=== PATIENT | female | born 1950 | race Caucasian/White ===

== ENCOUNTER 2018-05-10 19:05 | Observation (INO) | payer MEDICARE ==
[2018-05-10 19:25] LABS: #Basophils 0.2 thou/uL (0.0-0.2); #Eosinphils 0.2 thou/uL (0.0-0.7); #Lymphocytes 3.7 thou/uL (1.20-3.40); #Monocytes 0.6 thou/uL (0.11-0.59); #Neutrophils 6.3 thou/uL (1.40-6.50); %Basophils 1.4 % (0.0-1.0); %Eosinophils 1.7 % (0.0-10.0); %Lymphocytes 34.1 % (21.0-51.0); %Monocytes 5.5 % (0.0-10.0); %Neutrophils 57.2 % (42.0-75.0); Mean Corpuscular Hemoglobin 31.1 pg (27.0-31.0); Mean Corpuscular Volume 86.3 fL (78.0-98.0); Mean Platelet Volume 9.2 fL (7.4-10.4); Platelet Count 249 thou/uL (130-400); RBC Distribution Width 12.3 % (11.5-14.5); Red Blood Cell (RBC) Count 4.81 mill/uL (4.20-5.40); White Blood Cell (WBC) Count 10.9 thou/uL (4.8-10.8)
[2018-05-10] MEDS ORDERED: Nitroglycerin 2% Ointment 1 INCH/1 GM Packet ONE (19:36)
[2018-05-10 19:45] LABS: ALT (SGPT) 15 U/L (8-55); AST (SGOT) 18 U/L (5-34); Albumin 4.6 g/dL (3.4-4.8); Alkaline Phosphatase 102 U/L (40-150); Anion Gap 14 mmol/L (10-20); BUN (Urea Nitrogen) 12 mg/dL (9.8-20.1); Bilirubin, Total 0.4 mg/dL (0.2-1.2); CK (CPK) 53 U/L (29-168); Calc. Creatinine Clearance 0 mL/min (70-130); Calcium 10.1 mg/dL (7.8-10.44); Carbon Dioxide 27 mmol/L (23-31); Chloride 100 mmol/L (98-107); Estimated GFR-MDRD 67; Globulin 3.6 g/dL (2.4-3.5); Glucose 94 mg/dL (80-115); Magnesium 1.9 mg/dL (1.6-2.6); Potassium 3.2 mmol/L (3.5-5.1); Protein, Total 8.2 g/dL (6.0-8.3); Sodium 138 mmol/L (136-145)
[2018-05-10 19:49] LABS: CKMB 1.2 ng/mL (0-6.6); Troponin I Less than 0.010 ng/mL (< 0.028)
--- NOTE | 2018-05-10 20:21 | RAD ---
UPRIGHT PORTABLE CHEST ONE VIEW: History: 67-year-old female with history of chest pain, lightheadedness. Comparison: 02-13-16 FINDINGS: Monitor leads overlie the chest. Heart size is within upper range of normal. No confluent pneumonia, overt edema, pleural effusion or other acute process. IMPRESSION: No acute intrathoracic disease. POS: [facility]
[2018-05-10 20:34] LABS: Bilirubin Negative (Negative); Blood, Urine Negative (Negative); Clarity CLEAR (Clear); Glucose, Urine (Dipstick) Negative (Negative); Leukocyte Trace (Negative); Nitrite Negative (Negative); Protein, Urine (Dipstick) Negative (Neg-Trace); Specific Gravity, Urine 1.016 (1.002-1.036); pH, Urine 6.5 (5.0-9.0)
[2018-05-10 20:36] LABS: Bacteria/HPF None Seen HPF (None Seen); Hyaline Casts/LPF 0-3 HYALINE CAST LPF (0-3 Hyaline); Pathc Cast-AUWi Flag 0.29 (0-2.49); RBC/HPF 0-3 HPF (0-3); Squamous Epithelial 0-3 HPF (0-3)
[2018-05-10] MEDS ORDERED: Loratadine 10 MG TAB PO PRN (21:18)
[2018-05-10] MEDS ORDERED: Benzonatate 100 MG CAP PO PRN (21:18)
[2018-05-10] MEDS ORDERED: HYDROcodone/Acetaminophen 5/325 mg Tablet PO PRN (21:18)
[2018-05-10] MEDS ORDERED: hydrALAZINE 20 MG/ML VIAL SLOW IVP PRN (21:18)
[2018-05-10] MEDS ORDERED: Bisacodyl 5 MG TAB PO PRN (21:18)
[2018-05-10] MEDS ORDERED: Calcium Carbonate 500 MG ChewTAB PO PRN (21:18)
[2018-05-10] MEDS ORDERED: Nitroglycerin 0.4 MG TAB (25 Tab Bottle) SL PRN (21:18)
[2018-05-10] MEDS ORDERED: Sodium Chloride 0.65% Nasal 44 ML BOT EA NARE PRN (21:18)
[2018-05-10] MEDS ORDERED: Senokot S 8.6-50 MG TAB PO PRN ×2 (21:18)
[2018-05-10] MEDS ORDERED: Acetaminophen 325 MG TAB PO PRN (21:18)
[2018-05-10] MEDS ORDERED: Nitroglycerin 0.4 MG TAB (25 Tab Bottle) PO PRN (21:18)
[2018-05-10] MEDS ORDERED: Ondansetron PF 4 MG/2 ML Vial IVP PRN (21:18)
[2018-05-10] MEDS ORDERED: cloNIDine 0.1 MG TAB PO PRN (21:18)
[2018-05-10 21:30] VITALS: BMI 33.3
[2018-05-10] MEDS: Nitroglycerin 2% Ointment 1 INCH/1 GM Packet TOP SCH (21:59)
[2018-05-10] MEDS ORDERED: ALPRAZolam 0.25 MG TAB PO PRN (22:19)
[2018-05-10] MEDS ORDERED: Amlodipine 10 MG TAB PO SCH (22:30)
[2018-05-10 22:42] LABS: Troponin I Less than 0.010 ng/mL (< 0.028)
--- NOTE | 2018-05-10 23:16 | HP ---
PRIMARY CARE PHYSICIAN: Casandra Hampton M.D. CHIEF COMPLAINT: Chest pain, palpitations. HISTORY OF PRESENTING ILLNESS: Ms. Heaton is a 67-year-old female with past medical history of hyper tension and dyslipidemia who presented to the emergency room with above-mentioned complaint. History is mainly obtained by the patient herself and electronic medical records have been reviewed. Ms. Heaton reports that she has recently been under a lot of stress and feeling more anxious. She coe d some tingling of her left hand yesterday and presented to her primary care physician's office as sh e thought that she might be having a stroke. She reports that her blood pressure was 140s/80s in the office and an EKG was done which was reportedly negative and she was dismissed home. The patient fe els that she needed more workup and this morning when she woke up, she was feeling dizzy and almost p assed out. She later started to have some palpitations and on and off chest pain which she reports a s a tight sensation in the center of the chest traveling in her left breast. She reports that this w as associated with shortness of breath, palpitation, diaphoresis, nausea, blurred vision and the pain radiated down her arm, upper jaw, shoulder and back. She describes the pain as a 10/10 in intensity and it comes and goes. She cannot recall any exacerbating or relieving factors. She also reports t hat she has some cough and acid reflux-like symptoms in the last 2-3 days. Denies any fever. No ayanna sea, vomiting, or diarrhea. He denies any dysuria, frequency, urgency. Denies any orthopnea, PND or lower extremity swelling. Upon presentation to the emergency room, she was significantly hypertensive with a blood pressure of 237/116. This was treated with some antihypertensives in the emergency room including transdermal ni troglycerin with improvement in the blood pressure. Her EKG and cardiac enzyme and chest x-ray were unremarkable. She is now being admitted for further workup and rule out acute coronary syndrome. She does not have any history of tobacco abuse. She does have significant family history where she r eports that her mother has had multiple heart attacks and eventually she from heart attac k in her 40s. PAST MEDICAL HISTORY: 1. Hypertension. 2. Dyslipidemia. PAST SURGICAL HISTORY: 1. Cervical spinal fusion. 2. Femur repair on the left. 3. Ankle repair on the left. 4. Appendectomy. 5. History of kidney stone removal in the past. ALLERGIES: Includes ERYTHROMYCIN and TYRA INHIBITORS which causes angioedema as well as allergy to st eroids. FAMILY HISTORY: Significant for heart problems in her mother. Denies any family history of hyperten roshan, diabetes, cancer or stroke. SOCIAL HISTORY: She is and lives with her . Her children are all grown up and marrie d as well. She denies any history of drug, tobacco or alcohol abuse. HOME MEDICATIONS: 1. Amlodipine 10 mg daily. The patient reports that this was started only 1 week ago because of [facility] ontrolled hypertension. 2. Hydrochlorothiazide 12.5 mg daily and Zoloft 50 mg at bedtime. REVIEW OF SYSTEMS: A 12-point review of systems was done and it is negative except for those mention ed in the history and physical. CODE STATUS: FULL CODE. Discussed with the patient. LABORATORY DATA AND IMAGING DATA: CBC shows WBCs 10.9. Serum chemistry shows potassium of 3.2, othe rwise unremarkable. CK-MB and troponin within normal limit. BNP normal. Urinalysis shows trace nicolas kocyte esterase and wbc's without any bacteria. Chest x-ray by my review has no evidence to suggest any pleural effusion, edema or infiltrate. Twelve lead EKG by my review shows normal sinus rhythm wi thout any acute ST or T-wave changes. QTC interval was 460 milliseconds. She has some left ventricu lar hypertrophy, heart rate 73 beats per minute. PHYSICAL EXAMINATION: VITAL SIGNS: Most recent vital signs; temperature 97.8, pulse of 59, respirations 14, saturating 95% on room air, blood pressure 160/69. GENERAL: No acute distress. She does appear somewhat anxious, but is awake, alert, oriented x3. HEENT: Mucous membrane is moist and pink. No oropharyngeal exudate or erythema. Head is normocepha lic, atraumatic. Pupils are equal, reactive to light and accommodation. Extraocular movement intact . NECK: Supple without any lymphadenopathy, JVD or bruit. CHEST: Clear to auscultation without any wheezing, rales or rhonchi. Rhythm is regular. She has a loud 2/6 systolic murmur, best heard at the second intercostal space. ABDOMEN: Soft, nontender and nondistended with positive bowel sounds. EXTREMITIES: Free of any cyanosis, clubbing, or edema. NEUROLOGIC: Examination is nonfocal. SKIN: Free of any rashes or bruises. Feels warm and dry to touch. PSYCHIATRIC: Anxious affect. IMPRESSION AND PLAN: 1. Hypertensive urgency. The patient's blood pressure is under poor control. Likely exacerbated by her anxiety. We will increase her amlodipine to 10 mg twice a day and continue transdermal nitrogly cerin for now. Further adjustments as needed based on her blood pressure response. 2. Chest pain likely secondary to #1. She does have multiple risk factors including positive family history of coronary artery disease in her mother. We will continue her aspirin and check lipid prof ile in the morning. The patient does have allergy listed to TYRA inhibitors, so it will be avoided. Blood pressure control will be provided as her symptoms are likely secondary to intense vasospasm fro m uncontrolled hypertension. Continue transdermal nitroglycerin for now. We will obtain a nuclear m edicine stress test to rule out acute coronary syndrome and continue to trend serial cardiac enzymes. Initial EKG and troponin are unremarkable. She had a negative stress test about 2 years ago. 3. Dyslipidemia. The patient does not appear to be on any medications. We will check a lipid panel in the morning and start her on statins if abnormal. 4. Anxiety. The patient denies feeling anxious, but at the same time reports high stress level. We will use Xanax p.r.n. for now. 5. Deep venous thrombosis and gastrointestinal prophylaxis. 6. Code status: FULL CODE. Discussed with the patient. 7. Sterile pyuria. Send urine for culture. No indication for antibiotics for now. DISPOSITION: Ms. Heaton is being admitted to the hospital for uncontrolled hypertension and hyperten sive urgency as well as chest pain workup. She is currently under observation status. Further manag ement will depend upon her clinical course.
[2018-05-11 01:48] LABS: Troponin I Less than 0.010 ng/mL (< 0.028)
[2018-05-11 03:50] LABS: #Basophils 0.1 thou/uL (0.0-0.2); #Eosinphils 0.1 thou/uL (0.0-0.7); #Lymphocytes 2.8 thou/uL (1.20-3.40); #Monocytes 0.5 thou/uL (0.11-0.59); #Neutrophils 4.8 thou/uL (1.40-6.50); %Basophils 1.1 % (0.0-1.0); %Eosinophils 1.6 % (0.0-10.0); %Lymphocytes 33.4 % (21.0-51.0); %Monocytes 5.8 % (0.0-10.0); %Neutrophils 58.1 % (42.0-75.0); Hemoglobin 12.9 g/dL (12.0-16.0); Mean Corpuscular HGB CONC 33.5 g/dL (32.0-36.0); Mean Corpuscular Volume 86.6 fL (78.0-98.0); Mean Platelet Volume 9.8 fL (7.4-10.4); Platelet Count 235 thou/uL (130-400); RBC Distribution Width 12.4 % (11.5-14.5); Red Blood Cell (RBC) Count 4.44 mill/uL (4.20-5.40); White Blood Cell (WBC) Count 8.3 thou/uL (4.8-10.8)
[2018-05-11 04:10] LABS: Anion Gap 14 mmol/L (10-20); BUN (Urea Nitrogen) 12 mg/dL (9.8-20.1); Calc. Creatinine Clearance 90 mL/min (70-130); Calcium 9.5 mg/dL (7.8-10.44); Carbon Dioxide 26 mmol/L (23-31); Cardiac Risk 5.7 (Less than 4.5); Chloride 101 mmol/L (98-107); Cholesterol 205 mg/dl (< 200 Desired); Estimated GFR-MDRD 74; Glucose 109 mg/dL (80-115); HDL Cholesterol 36 mg/dL (>60 Neg Risk); LDL Cholesterol, Calculated 139 mg/dL; Sodium 138 mmol/L (136-145); Triglycerides 152 mg/dL (Less than 150)
[2018-05-11 04:12] LABS: Potassium 2.9 mmol/L (3.5-5.1)
[2018-05-11] MEDS ORDERED: Potassium Chloride 20 MEQ TAB PO SCH (04:30)
[2018-05-11] MEDS: Nitroglycerin 2% Ointment 1 INCH/1 GM Packet TOP SCH ×2 (04:40→15:49)
[2018-05-11] MEDS ORDERED: Aspirin 325 MG TAB PO SCH (08:00)
[2018-05-11] MEDS ORDERED: Amlodipine 10 MG TAB PO SCH (09:00)
[2018-05-11] MEDS ORDERED: Famotidine 20 MG TAB PO SCH (09:00)
[2018-05-11] MEDS ORDERED: Amlodipine 5 MG TAB PO SCH (09:00)
[2018-05-11] MEDS ORDERED: Hydrochlorothiazide 25 MG TAB PO SCH (09:00)
[2018-05-11] MEDS ORDERED: Enoxaparin Sodium 40 MG/0.4 ML SYRINGE SC SCH (09:00)
[2018-05-11] MEDS ORDERED: ADENOSINE 60 MG/20 ML VIAL ONE (10:33)
[2018-05-11 13:12] VITALS: BP 161/74; TEMP 97.9
--- NOTE | 2018-05-11 14:51 | NM ---
CARDIAC SPECT: HISTORY: A 67-year-old female with chest pain, hypertension, and dyslipidemia. TECHNIQUE: A myocardial perfusion scan was performed using the single-isotope 1-day protocol with Technetium 99m sestamibi. 10 mCi were injected intravenously for the rest exam followed by 29 mCi for the stress s tudy. Pharmacologic stress with adenosine was monitored and interpreted by [facility]. FINDINGS: Homogeneous tracer distribution is seen in the myocardial segments on stress and rest images without fixed or reversible defects. GATED SPECT LVEF: 64%. WALL MOTION EXAM: Normal. IMPRESSION: Normal myocardial perfusion scan. POS: [facility]
--- NOTE | 2018-05-12 15:30 | DIS ---
DATE OF ADMISSION: 05/10/2018 DATE OF DISCHARGE: 05/11/2018 DISCHARGE DIAGNOSES: 1. Hypertensive urgency, resolved. 2. Chest pain likely secondary to #1, resolved. 3. Dyslipidemia, stable. 4. History of anxiety, stable. CONSULTATIONS: None. PERTINENT LABORATORY AND DIAGNOSTIC FINDINGS: WBC 8.3, RBC 4.44, hemoglobin 12.9, platelet 235,000. Sodium 138, potassium 3.2, creatinine 0.84, estimated GFR 67. Troponin less than 0.010 x3. Lipid panel showed triglycerides 152, total cholesterol 205, LDL 139, HDL 36. Urinalysis showed trace leukocyte esterase and 4-6 urine wbc's. Chest x-ray showed no acute intrathoracic disease. Nuclear medicine cardiac stress test, showed normal myocardial perfusion scan with normal wall motion. HOSPITAL COURSE: Ms. Heaton is a pleasant 67-year-old female who had presented to the [facility] with chest pain and palpitations. It was found that her blood pressure upon arrival was elevated at 237/116, she was treated with IV antihypertensives in the ER along with a transdermal nitroglycerin. She has tolerated this well and blood pressure responded well. Her initial EKG was unremarkable and she was admitted to telemetry for observation and chest pain, rule out, cardiac enzymes were trended and found to be negative x3. Chest x-ray was found to be unremarkable. She was continued on her home medications. Lipid panel showed an elevated triglyceride and total cholesterol with LDL 139, she was started on aspirin and atorvastatin 10 mg p.o. daily. She was also continued on her home medications for blood pressure. Her blood pressure remained elevated; therefore, her home dose of amlodipine 10 mg p.o. daily was increased to twice daily. She had tolerated this change well without any acute complications. Blood pressure seemed to improve throughout the hospital course. She had undergone a cardiac stress test which was found to be normal. She was seen and examined prior to discharge. She had no further complaints of chest pain or palpitations. She had denied shortness of breath, abdominal pain, nausea, vomiting. She was essentially asymptomatic. She was instructed to continue new dose of Norvasc 10 mg twice daily along with continuing her home medications. She was also instructed to continue aspirin and atorvastatin for stroke prevention. She had verbalized her understanding of plan. She was deemed medically stable for discharge home on . DISCHARGE MEDICATIONS: 1. Amlodipine 10 mg oral b.i.d. 2. Aspirin 325 mg q.a.m. 3. Atorvastatin 10 mg oral daily. 4. Sertraline 50 mg oral at bedtime. 5. Hydrochlorothiazide 12.5 mg oral daily. FOLLOWUP: The patient is instructed to follow up with her primary care physician in 1-2 weeks. CONDITION ON DISCHARGE: Stable. DIET: Heart healthy. ACTIVITY: As tolerated. DISPOSITION: To home on 05/11/2018. NILESH
== END 2018-05-11 17:27 | disposition home or self-care (01) ==
LOC: ERS 19:05 → 2SW 19:55
PROVIDERS: ADMIT Internal Medicine; ATTEND Internal Medicine
DX: I16.0 Hypertensive urgency (principal); I10 Essential (primary) hypertension; E78.5 Hyperlipidemia, unspecified; F41.9 Anxiety disorder, unspecified; Z88.1 Allergy status to other antibiotic agents; Z79.899 Other long term (current) drug therapy; Z82.49 Family history of ischemic heart disease and other diseases of the circulatory system
CPT/HCPCS: 71045; 78452; 80048; 80053; 80061; 82550; 82553; 83735; 83880; 84484 ×3; 85025 ×2; 87086; 93005; 93017; 96372; 99285; A9500; G0378 ×2; 36415; 81003; 81015; J0153; J1650